=== PATIENT | male | born 1945 | race Caucasian/White ===

== ENCOUNTER 2018-05-10 07:00 | Day surgery (SDC) | payer MEDICARE, OTHER ==
[2018-05-06 12:00] LABS: BASOPHILS % (AUTO) 0.6 % (0-1); EOSINOPHILS # (AUTO) 0.2 X10'3 (0-0.9); EOSINOPHILS % (AUTO) 2.7 % (0-6); LYMPHOCYTES # (AUTO) 1.7 X10'3 (1.1-4.8); LYMPHOCYTES % (AUTO) 20.4 % (21-51); MEAN CORPUSCULAR HEMOGLOBIN 27.6 PG (27.0-31.0); MEAN CORPUSCULAR HGB CONC 33.3 g/dL (33.0-36.5); MEAN CORPUSCULAR VOLUME 82.8 FL (78-98); MEAN PLATELET VOLUME 7.2 FL (7.4-10.4); MONOCYTES # (AUTO) 0.5 X10'3 (0-0.9); MONOCYTES % (AUTO) 6.6 % (2-12); NEUTROPHILS # (AUTO) 5.7 X10'3 (1.8-7.7); NEUTROPHILS % (AUTO) 69.7 % (42-75); PRE OP HEMATOCRIT 43.6 % (42.0-52.0); PRE OP HEMOGLOBIN 14.5 g/dL (14.0-17.9); PRE OP PLATELET COUNT 252 X10'3 (140-440); RED BLOOD COUNT 5.27 X10'6 (4.70-6.10); RED CELL DISTRIBUTION WIDTH 13.7 % (11.5-14.5)
[2018-05-06 12:15] LABS: ALBUMIN 3.6 G/DL (3.4-5.0); ALKALINE PHOSPHATASE 102 IU/L (46-116); BLOOD UREA NITROGEN 29 MG/DL (7-18); BUN/CREATININE RATIO 22.3 (5.4-32.0); CALCIUM 9.1 MG/DL (8.5-10.1); CHLORIDE 100 MMOL/L (99-107); PRE OP ALT 26 U/L (30-65); PRE OP ANION GAP 11 (8-16); PRE OP AST 21 U/L (10-37); PRE OP BILIRUB, TOTAL 0.4 MG/DL (0.0-1.0); PRE OP GLUCOSE 153 MG/DL (70-104); PRE OP SODIUM 139 MMOL/L (135-145); TOTAL CARBON DIOXIDE 28.3 MMOL/L (24-32); TOTAL PROTEIN 7.3 G/DL (6.4-8.2); eGFR 54 ML/MIN
[~2018-05-10] VITALS: Ht 172.7 cm; Wt 108.0 kg
[~2018-05-10 07:00] MED LIST: ASPI-1265 PO; ATOR40TA PO; ATROPINE 1% RIGHTEYE; COU4T PO; DIFL5DRO EACHEYE; GABA-532 PO; LANTUS SQ; METF500T PO; MOXI3DRO12; [UNRECOGNIZED DRUG - OTHER] RIGHTEYE; cefazolin/dext.iso 2gm/50ml 50 ML IV ONE; famotidine 20mg tablet PO ONE; ringers solution, lacted 1,000 ML IV SCH
[2018-05-10] MEDS ORDERED: LIDOcaine 0.5% (5mg/ml) 50ml vial ONE (07:20)
[2018-05-10] MEDS ORDERED: ringers solution, lacted 1,000 ML IV SCH (07:34)
[2018-05-10] MEDS ORDERED: labetalol 20mg/4ml (5mg/ml) syringe IV PRN (07:35)
[2018-05-10] MEDS ORDERED: fentaNYL/PF 50MCG/1 ML 2ML syringe IV PRN ×2 (07:35)
[2018-05-10] MEDS ORDERED: ondansetron/PF 4mg/2ml inj IV PRN (07:35)
[2018-05-10] MEDS ORDERED: hydrALAZINE 20mg/ml inj. IV PRN (07:35)
[2018-05-10] MEDS ORDERED: morphine 4 MG/ML inj SYRINge IV PRN ×2 (07:35)
[2018-05-10 08:39] VITALS: BP 161/85
[2018-05-10 08:40] VITALS: BP 161/85
[2018-05-10] MEDS ORDERED: BUPIVAcaine/PF 2.5mg/ml (0.25%) 10ml vial ONE (09:22)
[2018-05-10] MEDS ORDERED: fentaNYL/PF 50MCG/1 ML 2ML syringe ONE (09:42)
[2018-05-10] MEDS ORDERED: midazolam 2 mg/2 ml injection ONE (09:42)
[2018-05-10 10:50] VITALS: BP 112/74
--- NOTE | 2018-05-10 10:50 | NUR ---
Received from OR via [facility], accompanied by Anesthesiologist DR. CRUZ and report given by Anesthesiolgist. PT FULLY AWAKE. VSS ON RA. DRESSING INTACT. ENCARNACION WITH [employer] CSM. 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
[2018-05-10 11:00] VITALS: BP 121/81
[2018-05-10 11:10] VITALS: BP 135/74
--- NOTE | 2018-05-10 11:20 | NUR ---
PT DC READY. DC INSTR READ TO PT AND FRIEND. WRITTEN COPY PROVIDED. VSS. FRIEND ASSISTED WITH DRESSING. PT TO POV VIA WC FOR DC HOME
== END 2018-05-10 11:20 | disposition home or self-care (01) ==
LOC: PAS 07:00
PROVIDERS: ATTEND Orthopaedic Surgery Hand Surgery
DX: I96 Gangrene, not elsewhere classified (principal); Z01.818 Encounter for other preprocedural examination; Z79.82 Long term (current) use of aspirin; Z79.899 Other long term (current) drug therapy; Z87.891 Personal history of nicotine dependence
CPT/HCPCS: 26951; 36415; 80053; 82948; 83036; 85025; 85610; 85730; A6222; A6449; J0690; J2001; J2250; J3010; J3490; J7120; 88305; A6446; A7000